=== PATIENT | female | born 1995 | race Caucasian/White ===

== ENCOUNTER 2018-05-29 20:00 | Emergency (ER) | payer OTHER ==
[2018-05-29 20:11] VITALS: RESP 16
[2018-05-29] MEDS ORDERED: Alum-Mag Hydrox-Simethicone Susp (30 mL) PO ONE (20:53)
[2018-05-29] MEDS ORDERED: Sodium Chloride 0.9% 1,000 ML IV STA (20:53)
--- NOTE | 2018-05-29 21:18 | ED PDOC ---
HPI: Abdomen Time Seen by Provider: 05/29/18 20:17 Chief Complaint (Nursing): Abdominal Pain History Per: Patient Additional Complaint(s): Pt. states yesterday she developed non-radiating epigastric pain after eating. 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 Pain came on after eating and has been waxing and waning since. She was seen at a clinic today for same complaint. Had blood work done which is still pending. She was prescribed Omeprazole which has not provided any relief. Denies N/V/D, fever, chest pain, SOB, previous abd surgeries. Last BM was yesterday and was normal. Last Menstral Period: 3 weeks ago Past Medical History Reviewed: Historical Data, Nursing Documentation, Vital Signs Vital Signs: Last Vital Signs Temp 97.8 F 05/29/18 20:09 Pulse 69 05/29/18 20:09 Resp 16 05/29/18 20:09 BP 106/70 05/29/18 20:09 Pulse Ox 100 05/29/18 20:09 - Medical History PMH: No Chronic Diseases - Surgical History Surgical History: No Surg Hx - Family History Family History: States: No Known Family Hx - Home Medications Home Medications: Ambulatory Orders Medication Instructions Recorded Famotidine [Pepcid] 1 - 2 tab PO DAILY PRN #10 tab 05/29/18 - Allergies Allergies/Adverse Reactions: Allergies Allergy/AdvReac Type Severity Reaction Status Date / Time No Known Allergies Allergy Verified 05/29/18 20:08 Review of Systems ROS Statement: Except As Marked, All Systems Reviewed And Found Negative Gastrointestinal: Positive for: Abdominal Pain Physical Exam - Physical Exam Appears: Positive for: Well, Non-toxic, No Acute Distress Skin: Positive for: Normal Color, Warm. Negative for: Rash Eye Exam: Positive for: Normal appearance. Negative for: Scleral icterus (b/l) Cardiovascular/Chest: Positive for: Regular Rate, Rhythm Respiratory: Positive for: Normal Breath Sounds Gastrointestinal/Abdominal: Positive for: Bowel Sounds, Soft, Tenderness (RUQ and epigastric tenderness), Other (negative Danielle's sign). Negative for: Organomegaly Back: Negative for: L CVA Tenderness, R CVA Tenderness Neurologic/Psych: Positive for: Alert, Oriented (x3) - Laboratory Results Result Diagrams: 05/29/18 21:10 05/29/18 21:10 - ECG O2 Sat by Pulse Oximetry: 100 - Progress ED Course And Treament: Labs, Abd US, pepcid 20mg IV, maalox 30ml PO, viscous lidocaine 15ml PO ordered. 2220 On re-evaluation, pt. reports good relief of abd pain. Pending US report. US: sludge; no cholecysitits Informed of all results. Low fat and low cholesterol diet encouraged. Advised to f/u with Dr. Mon for further evaluation but return to ED immediately if symptoms worsen. Disposition - Clinical Impression Clinical Impression: Gastritis, Gallbladder sludge - Patient ED Disposition Is Patient to be Admitted: No - Disposition Referrals: Johnathan Mon MD [Staff Provider] - Disposition: Routine/Home Disposition Time: 23:31 Condition: IMPROVED Additional Instructions: FOLLOW UP WITH DR. MON FOR FURTHER EVALUATION RETURN TO ED IMMEDIATELY IF SYMPTOMS WORSEN JOSHUA TATUM, thank you for letting us take care of you today. Your provider was Shonna Reza MD and you were treated for ABD PAIN. The emergency medical care you received today was directed at your acute symptoms. If you were prescribed any medication, please fill it and take as directed. It may take several days for your symptoms to resolve. Return to the Emergency Department if your symptoms worsen, do not improve, or if you have any other problems. Please contact your doctor or call one of the physicians/clinics you have been referred to that are listed on the Patient Visit Information form that is included in your discharge packet. Bring any paperwork you were given at [facility] with you along with any medications you are taking to your follow up visit. Our treatment cannot replace ongoing medical care by a primary care provider outside of the emergency department. Thank you for allowing the [facility] team to be part of your care today. If you had an X-Ray or CT scan: A Radiologist will review the ED reading if any change in treatment is needed we will contact you. If you had a blood, urine, or wound culture: It will take several days for the results, if any change in treatment is needed we will contact you. If you had an STI test: It will take 48 hours for the results. Please call after 1 week if you have not heard back. Prescriptions: Famotidine [Pepcid] 1 - 2 tab PO DAILY PRN #10 tab PRN Reason: abdominal pain Instructions: Gastritis (DC) Forms: [employer] (Slovenian)
[2018-05-29 21:19] LABS: BASO % 0.8 % (0.0-2.0); EOS # 0.1 K/uL (0.0-0.7); EOS % 2.5 % (0.0-4.0); HEMOGLOBIN 11.7 g/dL (12.0-16.0); LYMPH # 1.9 K/uL (1.0-4.3); LYMPH % 37.2 % (20.0-40.0); MEAN CORPUSCULAR HEMOGLOBIN 30.7 pg (27.0-31.0); MEAN CORPUSCULAR HGB CONC 33.1 g/dL (33.0-37.0); MEAN PLATELET VOLUME 10.6 fl (7.2-11.7); MONO # 0.4 K/uL (0.0-0.8); MONO % 7.3 % (0.0-10.0); NEUT # 2.7 K/uL (1.8-7.0); NEUT % 52.2 % (50.0-75.0); NRBC % 0.1 % (0.0-0.0); RBC 3.82 Mil/uL (3.80-5.20); RED CELL DISTRIBUTION WIDTH 14.2 % (11.5-14.5); WHITE BLOOD COUNT 5.1 K/uL (4.8-10.8)
[2018-05-29 21:24] LABS: SQUAMOUS EPITHIAL 4 /hpf (0-5); URINE BACTERIA RARE (<OCC); URINE BILIRUBIN NEGATIVE (NEGATIVE); URINE BLOOD NEGATIVE (NEGATIVE); URINE CLARITY SLIGHTY-CLOUDY (Clear); URINE COLOR STRAW (YELLOW); URINE GLUCOSE (UA) NEG (NEGATIVE); URINE LEUKOCYTE ESTERASE SMALL Leu/uL (Negative); URINE PROTEIN NEGATIVE (NEGATIVE); URINE UROBILINOGEN 0.2-1.0 mg/dL (0.2-1.0)
[2018-05-29 21:39] LABS: BLOOD UREA NITROGEN 11 mg/dl (7-17); GFR NON-AFRICAN AMERICAN > 60
[2018-05-29 21:40] LABS: ALBUMIN 4.3 g/dL (3.5-5.0); CALCIUM 9.3 mg/dL (8.4-10.2)
[2018-05-29 21:41] LABS: ALT/SGPT 17 U/L (9-52); AST/SGOT 21 U/L (14-36); LIPASE 153 U/L (23-300)
[2018-05-29 21:52] LABS: ALB/GLOB RATIO 1.2 (1.0-2.1)
[2018-05-30 01:48] VITALS: BP 110/70; PULSE 86; TEMP 98.2
[2018-05-30 03:34] VITALS: O2SAT 100
--- NOTE | 2018-05-30 11:12 | US ---
Date of service: 05/29/2018 HISTORY: RUQ and epigastric pain COMPARISON: None. TECHNIQUE: Sonographic evaluation of the right upper quadrant of the abdomen. FINDINGS: LIVER: Measures 14.2 cm in length. Patent portal vein. Portal venous flow: Hepatopetal. Unremarkable echogenicity of the liver parenchyma. No mass. No intrahepatic bile duct dilatation. GALLBLADDER: Sludge identified. Normal gallbladder wall thickness. No gallstones. COMMON BILE DUCT: Measures 2.2 mm. No stones. No dilatation. PANCREAS: Unremarkable as visualized. No mass. No ductal dilatation. RIGHT KIDNEY: Measures cm in length. Normal echogenicity. No calculus, mass, or hydronephrosis. AORTA: No aneurysmal dilatation. IVC: Unremarkable. OTHER FINDINGS: None . IMPRESSION: No acute findings related to/ accounting for the clinical presentation. Additional benign and/or incidental findings described above. Concordant findings (preliminary report) provided by [facility].
== END 2018-05-29 23:50 | disposition home or self-care (01) ==
LOC: H.ER 20:00
DX: K29.70 Gastritis, unspecified, without bleeding (principal)
CPT/HCPCS: 76705; 80053; 81003; 81025; 83690; 85025; 87086; 87181; 96361; 96374; 99283; J7030

== ENCOUNTER 2018-05-30 21:40 | Observation (INO) | payer OTHER ==
[2018-05-30] MEDS ORDERED: Sodium Chloride 0.9% 1,000 ML IV STA (22:10)
[2018-05-30] MEDS ORDERED: Alum-Mag Hydrox-Simethicone Susp (30 mL) PO ONE (22:10)
[2018-05-30] MEDS ORDERED: Alum-Mag Hydrox-Simethicone Susp (30 mL) ONE (22:40)
[2018-05-30 22:52] LABS: SQUAMOUS EPITHIAL 1 /hpf (0-5); URINE BILIRUBIN NEGATIVE (NEGATIVE); URINE BLOOD SMALL (NEGATIVE); URINE CLARITY CLEAR (Clear); URINE COLOR COLORLESS (YELLOW); URINE GLUCOSE (UA) NEG (NEGATIVE); URINE LEUKOCYTE ESTERASE NEG Leu/uL (Negative); URINE PROTEIN NEGATIVE (NEGATIVE); URINE UROBILINOGEN 0.2-1.0 mg/dL (0.2-1.0)
--- NOTE | 2018-05-30 22:54 | ED PDOC ---
HPI: Abdomen Time Seen by Provider: 05/30/18 22:04 Chief Complaint (Nursing): Abdominal Pain History Per: Patient Additional Complaint(s): Pt. states for the past 3 days she's had epigastric pain x 3 hours. Pt. was seen in this ED yesterday and for same complaint by this provider. Pt. was dc'd pain free. US showed biliary sludge but no stones or cholecystitis. 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 Now reports feeling nauseous but no vomiting. Denies fever, chest pain, melena, hematochezia, BRBPR, rectal bleeding. Past Medical History Reviewed: Historical Data, Nursing Documentation, Vital Signs Vital Signs: Last Vital Signs Temp 98.2 F 05/30/18 21:48 Pulse 100 H 05/30/18 21:48 Resp 16 05/30/18 21:48 BP 121/83 05/30/18 21:48 Pulse Ox 99 05/30/18 21:48 - Surgical History Surgical History: No Surg Hx - Family History Family History: States: No Known Family Hx - Home Medications Home Medications: Ambulatory Orders Medication Instructions Recorded RX: Famotidine [Pepcid] 1 - 2 tab PO DAILY PRN #10 tab 05/29/18 RX: Amoxicillin 1,000 mg PO Q12 05/31/18 RX: Clarithromycin [Biaxin Filmtab] 500 mg PO Q12 05/31/18 RX: Omeprazole 20 mg PO DAILY 05/31/18 - Allergies Allergies/Adverse Reactions: Allergies Allergy/AdvReac Type Severity Reaction Status Date / Time No Known Allergies Allergy Verified 05/30/18 21:47 Review of Systems ROS Statement: Except As Marked, All Systems Reviewed And Found Negative Gastrointestinal: Positive for: Nausea, Abdominal Pain Physical Exam - Physical Exam Appears: Positive for: Well, Non-toxic, No Acute Distress Skin: Positive for: Normal Color, Warm. Negative for: Rash Eye Exam: Positive for: Normal appearance. Negative for: Scleral icterus Cardiovascular/Chest: Positive for: Regular Rate, Rhythm Respiratory: Positive for: Normal Breath Sounds Gastrointestinal/Abdominal: Positive for: Soft, Tenderness (RUQ and epigastric tenderness), Other (Negative lezama's sign). Negative for: Guarding Back: Negative for: L CVA Tenderness, R CVA Tenderness Neurologic/Psych: Positive for: Alert, Oriented (x3) - Laboratory Results Result Diagrams: 05/30/18 22:53 05/31/18 02:10 - ECG ECG: Positive for: Interpreted By Me ECG Rhythm: Positive for: Sinus Rhythm. Negative for: ST/T Changes Rate: 86 O2 Sat by Pulse Oximetry: 99 (RA) Pulse Ox Interpretation: Normal - Progress ED Course And Treament: Labs, CT abd/pelvis w/ PO and IV contrast, EKG, pepcid 20mg IV, zofran 4mg IV, maalox 30ml PO, viscous lidocaine 15ml PO, IV NS bolus ordered. Pt. kept NPO. Last PO intake at 1400 today. 0000 Reports pain initially resolved but has since returned. Protonix IV ordered. Pending CT. 02:11 Patient reports pain completely resolved. However, due to CT report, RUQ US ordered. 0430 Case d/w Dr. Camarillo, surgery, who requests pt. to be admitted under Dr. Moya and to be given Zosyn IV. Medical Decision Making Medical Decision Making: CT COMMENTS: Significant food residue in the distended stomach. Fluid filled small and large bowels. Mild diffuse thickening of the bladder. Mild amount of free fluid is noted in the pelvis. The liver is of uniform attenuation without mass or defect. There is no intra or extrahepatic biliary ductal dilatation. The spleen is normal. The gallbladder is within normal limits. The pancreas is of normal contour and attenuation characteristics. There is no evidence of adrenal mass. Both kidneys demonstrate prompt and equal nephrograms. The kidneys are normal in size, shape and configuration. There is no evidence of renal or ureteral mass. No renal or ureteral calculi are identified. There is no hydroureter or hydronephrosis. No evidence for appendicitis. There is no bowel wall thickening. No evidence for small or large bowel obstruction. There is no evidence of abdominal ascites or lymphadenopathy. There is no evidence of intrinsic or extrinsic bladder mass. There is no pelvic ascites or lymphadenopathy. Images of the lung bases show no evidence of pleural or parenchymal mass. There are no pleural effusions. The bony structures are free of lytic or blastic lesions. IMPRESSION: Mild amount of free pelvic fluid. Fluid-filled small and large bowels. Ileus versus developing enterocolitis. Diffuse thickening of the distended gallbladder, this is suspicious for mild developing acute inflammatory pathology. Correlation with right upper quadrant tenderness is suggested. 03:36 Gallbladder hepatic US Findings: The liver is normal in size measuring 12.5 cm. Sludge is noted in the gallbladder. Minimal diffuse thickening of the gallbladder. Nondilated common bile duct measuring 3.9 mm. Unremarkable pancreas. Unremarkable IVC. Unremarkable aorta. Nonaneurysmal aorta measuring 1.3 cm. Unremarkable right kidney measuring 10 x 3.2 x 4.1 cm. Impression: Gallbladder sludge. Suspected developing acute cholecystitis. Disposition - Clinical Impression Clinical Impression: Abdominal pain in female, Biliary sludge - Patient ED Disposition Is Patient to be Admitted: Yes - Disposition Disposition Time: 04:30 Condition: FAIR
[2018-05-30 22:57] LABS: BASO % 0.8 % (0.0-2.0); EOS # 0.1 K/uL (0.0-0.7); EOS % 2.5 % (0.0-4.0); HEMOGLOBIN 13.9 g/dL (12.0-16.0); LYMPH # 1.8 K/uL (1.0-4.3); LYMPH % 35.3 % (20.0-40.0); MEAN CELL VOLUME 91.2 fl (81.0-99.0); MEAN CORPUSCULAR HEMOGLOBIN 30.5 pg (27.0-31.0); MEAN CORPUSCULAR HGB CONC 33.4 g/dL (33.0-37.0); MEAN PLATELET VOLUME 10.5 fl (7.2-11.7); MONO # 0.3 K/uL (0.0-0.8); MONO % 6.5 % (0.0-10.0); NEUT # 2.8 K/uL (1.8-7.0); NEUT % 54.9 % (50.0-75.0); RBC 4.56 Mil/uL (3.80-5.20)
[2018-05-31] MEDS ORDERED: Iohexol 300 100 ML IJ ONE (00:37)
[2018-05-31] MEDS ORDERED: Sodium Chloride 0.9% 50 ML IV ONE (00:37)
[2018-05-31 02:31] LABS: INR 1.2; PROTHROMBIN TIME 13.2 Seconds (9.8-13.1)
[2018-05-31 02:32] LABS: ALB/GLOB RATIO 1.1 (1.0-2.1); ALT/SGPT 19 U/L (9-52); AST/SGOT 18 U/L (14-36); BLOOD UREA NITROGEN 10 mg/dl (7-17); CALCIUM 8.6 mg/dL (8.4-10.2); GFR NON-AFRICAN AMERICAN > 60
[2018-05-31 02:33] LABS: PARTIAL THROMBOPLASTIN TIME 36.6 Seconds (25.6-37.1)
[2018-05-31] MEDS ORDERED: Piperacillin/Tazobact 3.375 GM in Sodium Chloride 0.9% 100 ML IVPB STA (04:29)
[2018-05-31] MEDS ORDERED: Sodium Chloride 0.9% 1,000 ML IV STA (04:48)
[2018-05-31] MEDS ORDERED: Piperacillin/Tazobact 3.375 gm Inj IVPB ONE (05:24)
[2018-05-31] MEDS ORDERED: Morphine 4 MG/ML VIAL IVP PRN (05:50)
[2018-05-31] MEDS ORDERED: Lactated Ringer's 1,000 ML IV SCH (06:00)
[2018-05-31 08:34] VITALS: BP 103/64; RESP 16
--- NOTE | 2018-05-31 09:03 | CT ---
Date of service: 05/31/2018 PROCEDURE: CT Abdomen and Pelvis with contrast HISTORY: epigastric abd pain COMPARISON: Limited abdomen ultrasound 05/29/2018. TECHNIQUE: Following the intravenous administration of iodinated contrast material, a CT examination of the abdomen and pelvis was performed from the domes of the diaphragms to the symphysis pubis with reformatted datasets provided in axial, sagittal and coronal planes. Oral contrast was not administered as per referring physician request. Contrast dose: Omnipaque 300, 75 cc Radiation dose: Total exam DLP = 189.45 mGy-cm. This CT exam was performed using one or more of the following dose reduction techniques: Automated exposure control, adjustment of the mA and/or kV according to patient size, and/or use of iterative reconstruction technique. FINDINGS: LOWER THORAX: Unremarkable. LIVER: Unremarkable. No gross lesion or ductal dilatation. GALLBLADDER AND BILE DUCTS: Gallbladder is distended but without significant mural thickening and there is no pericholecystic fluid collection evident. Biliary tree appears normal caliber overall. No radiodense cholelithiasis or choledocholithiasis appreciable. PANCREAS: Unremarkable. No gross lesion or ductal dilatation. SPLEEN: Unremarkable. ADRENALS: Unremarkable. No mass. KIDNEYS AND URETERS: Unremarkable. No hydronephrosis. No solid mass. VASCULATURE: Unremarkable. No aortic aneurysm. No aortic atherosclerotic calcification or mural plaque present. BOWEL: Evaluation of the gastrointestinal tract is limited due to the lack of oral contrast administration. No bowel obstruction or free intra peritoneal gas collection is identified. [id number] amount of retained fecal material seen at the right greater than left hemicolon. Limited mural thickening of mid to distal sigmoid colon is difficult to completely exclude with rectum collapsed and poorly evaluated. Limited pelvic fluid is identified as well. Consider potential limited segmental colitis here though this is not definite. APPENDIX: Normal appendix. PERITONEUM: Unremarkable. No free fluid. No free air. LYMPH NODES: Unremarkable. No enlarged lymph nodes. BLADDER: Unremarkable. REPRODUCTIVE: Unremarkable. BONES: No acute fracture. OTHER FINDINGS: None. IMPRESSION: 1. Potential segmental colitis affecting mid to distal sigmoid colon with the rectum collapsed and poorly evaluated. Limited pelvic ascites is appreciated. No free intra peritoneal gas collection. No definite abscess. Clinically correlate further nevertheless. 2. The gallbladder is distended and otherwise appears unremarkable. No cholelithiasis or choledocholithiasis. No dilatation of the biliary tree. Follow-up ultrasonography may be useful given epigastric pain signature though no suspicious gallbladder findings were previously demonstrated sonographically. Preliminary report provided by Garry, 05/31/2018 1:30 a.m..
--- NOTE | 2018-05-31 09:35 | CARD ---
APPROVED REPORT Date of service: 05/30/2018 EKG Measurement Heart [id number] <Conclusion> Normal sinus rhythm Rightward axis Borderline ECG
[2018-05-31] MEDS ORDERED: Bupivacaine 0.25%-Epinephrine 1:200,000 (30 ml) Inj ONE (09:57)
--- NOTE | 2018-05-31 10:06 | CP.PCM.CON ---
History of Present Illness - History of Present Illness History of Present Illness: 23 yo female admitted after second visit to ER for epigastric abdominal pain. Each episode follwed lunch. On the first day had gone first to urgent care office and then to the ER. Had been given at urgent care omeprazole, amoxicillin, and clarithromycin . Was sent home pain free form the ER after antacids. Was admitted yesterday after pain returned following steak lunch. Pain both times epigastric in location and does not radiate to the back.No N andV or diarrhea. No recent alcohol use. No GI issues prior to the past few days. Review of Systems - Constitutional Constitutional: absent: Chills - EENT Ears: absent: Ear Pain Nose/Mouth/Throat: absent: Epistaxis - Respiratory Respiratory: absent: Cough - Gastrointestinal Gastrointestinal: As Per HPI Past Patient History - Past Medical History & Family History Past Medical History?: Yes - Past Social History Smoking Status: Never Smoked - CARDIAC Hx Cardiac Disorders: No - PULMONARY Hx Respiratory Disorders: No - NEUROLOGICAL Hx Neurological Disorder: No - HEENT Hx HEENT Problems: No Other/Comment: wears glasses for nearsightedness - RENAL Hx Chronic Kidney Disease: No - ENDOCRINE/METABOLIC Hx Endocrine Disorders: No - HEMATOLOGICAL/ONCOLOGICAL Hx Blood Disorders: No Hx AIDS: No Hx Human Immunodeficiency Virus (HIV): No - INTEGUMENTARY Hx Dermatological Problems: No - MUSCULOSKELETAL/RHEUMATOLOGICAL Hx Musculoskeletal Disorders: No Hx Falls: No - GASTROINTESTINAL Hx Gastrointestinal Disorders: Yes Other/Comment: was in ED 05/29 for abdominal pain ,was DX with sludge in gallbladder after U/S of GB done - GENITOURINARY/GYNECOLOGICAL Hx Genitourinary Disorders: No - PSYCHIATRIC Hx Psychophysiologic Disorder: No Hx Substance Use: No - SURGICAL HISTORY Hx Surgeries: No - ANESTHESIA Hx Anesthesia: No Has any member of the family had a problem w/ anesthesia?: No Meds Allergies/Adverse Reactions: Allergies Allergy/AdvReac Type Severity Reaction Status Date / Time No Known Allergies Allergy Verified 05/30/18 21:47 - Medications Medications: Current Medications Lactated Ringer's (Lactated Ringer's) 1,000 mls @ 80 mls/hr IV .[id number] ON LICENSE OF [facility] Last Admin: 05/31/18 06:42 Dose: 80 mls/hr Morphine Sulfate (Morphine) 2 mg IVP Q4 PRN PRN Reason: Pain, moderate (4-7) Pantoprazole Sodium (Protonix Inj) 40 mg IVP DAILY GEM Physical Exam - Constitutional Appears: No Acute Distress - Eye Exam Eye Exam: Normal appearance - ENT Exam ENT Exam: Normal Exam - Neck Exam Neck exam: Positive for: Normal Inspection - Respiratory Exam Respiratory Exam: NORMAL BREATHING PATTERN - Cardiovascular Exam Cardiovascular Exam: REGULAR RHYTHM, +S1, +S2 - GI/Abdominal Exam GI & Abdominal Exam: Normal Bowel Sounds, Soft. absent: Mass, Organomegaly, Tenderness Results - Vital Signs Recent Vital Signs: Last Vital Signs Temp 99.0 F 05/31/18 08:33 Pulse 86 05/31/18 08:33 Resp 16 05/31/18 08:33 BP 103/64 05/31/18 08:33 Pulse Ox 99 05/31/18 08:33 - Labs Result Diagrams: 05/30/18 22:53 05/31/18 02:10 Labs: Laboratory Results - last 24 hr 05/30/18 05/30/18 05/31/18 22:40 22:53 02:10 WBC 5.0 RBC 4.56 Hgb 13.9 D Hct 41.6 MCV 91.2 MCH 30.5 MCHC 33.4 RDW 14.0 Plt Count 219 MPV 10.5 Neut % (Auto) 54.9 Lymph % (Auto) 35.3 [place] % (Auto) 6.5 Eos % (Auto) 2.5 Baso % (Auto) 0.8 Neut # (Auto) 2.8 Lymph # (Auto) 1.8 [place] # (Auto) 0.3 Eos # (Auto) 0.1 Baso # (Auto) 0.0 PT INR APTT Sodium 138 Potassium 4.0 Chloride 111 H Carbon Dioxide 21 L Anion Gap 10 BUN 10 Creatinine 0.6 L Est GFR ( Amer) > 60 Est GFR (Non-Af Amer) > 60 Random Glucose 83 Calcium 8.6 Total Bilirubin 0.4 AST 18 ALT 19 Alkaline Phosphatase 72 Total Protein 7.5 Albumin 4.0 Globulin 3.5 Albumin/Globulin Ratio 1.1 Lipase Urine Color Colorless Urine Clarity Clear Urine pH 8.0 Ur Specific [place] < 1.005 Urine Protein Negative Urine Glucose (UA) Neg Urine Ketones Negative Urine Blood Small Urine Nitrate Negative Urine Bilirubin Negative Urine Urobilinogen 0.2-1.0 Ur Leukocyte Esterase Neg Urine RBC (Auto) 1 Urine Microscopic WBC < 1 Ur Squamous Epith Cells 1 Blood Type Antibody Screen BBK History Checked 05/31/18 05/31/18 05/31/18 02:10 02:10 08:27 WBC RBC Hgb Hct MCV MCH MCHC RDW Plt Count MPV Neut % (Auto) Lymph % (Auto) [place] % (Auto) Eos % (Auto) Baso % (Auto) Neut # (Auto) Lymph # (Auto) [place] # (Auto) Eos # (Auto) Baso # (Auto) PT 13.2 H INR 1.2 APTT 36.6 Sodium Potassium Chloride Carbon Dioxide Anion Gap BUN Creatinine Est GFR ( Amer) Est GFR (Non-Af Amer) Random Glucose Calcium Total Bilirubin AST ALT Alkaline Phosphatase Total Protein Albumin Globulin Albumin/Globulin Ratio Lipase 119 Urine Color Urine Clarity Urine pH Ur Specific [place] Urine Protein Urine Glucose (UA) Urine Ketones Urine Blood Urine Nitrate Urine Bilirubin Urine Urobilinogen Ur Leukocyte Esterase Urine RBC (Auto) Urine Microscopic WBC Ur Squamous Epith Cells Blood Type B POSITIVE Antibody Screen Negative BBK History Checked No verified bt - Imaging and Cardiology CT scan - abdomen Status: Image reviewed by me, Report reviewed by me US - abdomen Status: Report reviewed by me Assessment & Plan (1) Epigastric abdominal pain Assessment and Plan: Two episisodes of anterior epigastric pain each time responding to antisecretory therapy. Possible biliary sludge on sono but pain description atypical for billiary pain and WBC/LFTs are normal. Symptoms more consistent with gastritis than biliary colic. Possible ileus on CT though now abdominal exam is benign. May discharge home on omeprazole 20 mg po QD. May stop antibiotics and for now would hold antibiotics given to her by urgicenter apparently to treat H. pylori. Avoid red meat and fried foods and small meals for the next 4 days. Probiotics intake in foods or in supplement form Status: Acute
--- NOTE | 2018-05-31 10:10 | CP.PCM.HP ---
History of Present Illness - History of Present Illness History of Present Illness: Surgery H&P for Dr. Moya Pt is a 23F with who presented to the ED with persistent epigastric pain after eating. Per patient, she just recently had an outpatient breath test that was indicative of an H. pylori infection and she was started on omeprazole and antibiotics. Symptoms started a few days ago and she came to the ER on 05/29, had an US showed cholecystitis, but was unwise unremarkable, and she was discharged home with antacids and instructions to follow up with GI. Patient symptoms did not resolve, with persistent epigastric pain after eating despite medication, so she returned to the ER. Repeat US showed stones, gallbladder distention, and mild wall thickening and she was admitted to the surgical service. Patient denies nausea, vomiting, diarrhea, fevers, chills, back pain, dysuria, hematuria, chest pain, or SOB PMH: H. pylori--active PSH: none ALL: NKDA Social: denies tobacco, ETOH, or drug use Present on Admission - Present on Admission Any Indicators Present on Admission: No Review of Systems - Review of Systems All systems: reviewed and no additional remarkable complaints except (as per HPI) Past Patient History - Past Medical History & Family History Past Medical History?: Yes Past Family History: Reviewed and not pertinent - Past Social History Smoking Status: Never Smoked Alcohol: None Drugs: Denies Home Situation {Lives}: With Family - CARDIAC Hx Cardiac Disorders: No - PULMONARY Hx Respiratory Disorders: No - NEUROLOGICAL Hx Neurological Disorder: No - HEENT Hx HEENT Problems: No Other/Comment: wears glasses for nearsightedness - RENAL Hx Chronic Kidney Disease: No - ENDOCRINE/METABOLIC Hx Endocrine Disorders: No - HEMATOLOGICAL/ONCOLOGICAL Hx Blood Disorders: No Hx AIDS: No Hx Human Immunodeficiency Virus (HIV): No - INTEGUMENTARY Hx Dermatological Problems: No - MUSCULOSKELETAL/RHEUMATOLOGICAL Hx Musculoskeletal Disorders: No Hx Falls: No - GASTROINTESTINAL Hx Gastrointestinal Disorders: Yes Other/Comment: was in ED 05/29 for abdominal pain ,was DX with sludge in gallbladder after U/S of GB done - GENITOURINARY/GYNECOLOGICAL Hx Genitourinary Disorders: No - PSYCHIATRIC Hx Psychophysiologic Disorder: No Hx Substance Use: No - SURGICAL HISTORY Hx Surgeries: No - ANESTHESIA Hx Anesthesia: No Has any member of the family had a problem w/ anesthesia?: No Meds Allergies/Adverse Reactions: Allergies Allergy/AdvReac Type Severity Reaction Status Date / Time No Known Allergies Allergy Verified 05/30/18 21:47 Physical Exam - Constitutional Appears: Well, Non-toxic, No Acute Distress - Head Exam Head Exam: ATRAUMATIC, NORMOCEPHALIC - Eye Exam Eye Exam: Normal appearance. absent: Conjunctival injection, Scleral icterus - ENT Exam ENT Exam: Mucous Membranes Moist, Normal Oropharynx - Respiratory Exam Respiratory Exam: NORMAL BREATHING PATTERN. absent: Accessory Muscle Use, Respiratory Distress - Cardiovascular Exam Cardiovascular Exam: RRR - GI/Abdominal Exam GI & Abdominal Exam: Soft. absent: Distended, Tenderness - Neurological Exam Neurological exam: Alert, Oriented x3 - Psychiatric Exam Psychiatric exam: Normal Affect, Normal Mood - Skin Skin Exam: Dry, Normal Color, Warm Results - Vital Signs Recent Vital Signs: Last Vital Signs Temp 99.0 F 05/31/18 08:33 Pulse 86 05/31/18 08:33 Resp 16 05/31/18 08:33 BP 103/64 05/31/18 08:33 Pulse Ox 99 05/31/18 08:33 - Labs Result Diagrams: 05/30/18 22:53 05/31/18 02:10 Labs: Laboratory Results - last 24 hr 05/30/18 05/30/18 05/31/18 22:40 22:53 02:10 WBC 5.0 RBC 4.56 Hgb 13.9 D Hct 41.6 MCV 91.2 MCH 30.5 MCHC 33.4 RDW 14.0 Plt Count 219 MPV 10.5 Neut % (Auto) 54.9 Lymph % (Auto) 35.3 Swift % (Auto) 6.5 Eos % (Auto) 2.5 Baso % (Auto) 0.8 Neut # (Auto) 2.8 Lymph # (Auto) 1.8 Swift # (Auto) 0.3 Eos # (Auto) 0.1 Baso # (Auto) 0.0 PT INR APTT Sodium 138 Potassium 4.0 Chloride 111 H Carbon Dioxide 21 L Anion Gap 10 BUN 10 Creatinine 0.6 L Est GFR ( Amer) > 60 Est GFR (Non-Af Amer) > 60 Random Glucose 83 Calcium 8.6 Total Bilirubin 0.4 AST 18 ALT 19 Alkaline Phosphatase 72 Total Protein 7.5 Albumin 4.0 Globulin 3.5 Albumin/Globulin Ratio 1.1 Lipase Urine Color Colorless Urine Clarity Clear Urine pH 8.0 Ur Specific [place] < 1.005 Urine Protein Negative Urine Glucose (UA) Neg Urine Ketones Negative Urine Blood Small Urine Nitrate Negative Urine Bilirubin Negative Urine Urobilinogen 0.2-1.0 Ur Leukocyte Esterase Neg Urine RBC (Auto) 1 Urine Microscopic WBC < 1 Ur Squamous Epith Cells 1 Blood Type Antibody Screen BBK History Checked 05/31/18 05/31/18 05/31/18 02:10 02:10 08:27 WBC RBC Hgb Hct MCV MCH MCHC RDW Plt Count MPV Neut % (Auto) Lymph % (Auto) Swift % (Auto) Eos % (Auto) Baso % (Auto) Neut # (Auto) Lymph # (Auto) Swift # (Auto) Eos # (Auto) Baso # (Auto) PT 13.2 H INR 1.2 APTT 36.6 Sodium Potassium Chloride Carbon Dioxide Anion Gap BUN Creatinine Est GFR ( Amer) Est GFR (Non-Af Amer) Random Glucose Calcium Total Bilirubin AST ALT Alkaline Phosphatase Total Protein Albumin Globulin Albumin/Globulin Ratio Lipase 119 Urine Color Urine Clarity Urine pH Ur Specific [place] Urine Protein Urine Glucose (UA) Urine Ketones Urine Blood Urine Nitrate Urine Bilirubin Urine Urobilinogen Ur Leukocyte Esterase Urine RBC (Auto) Urine Microscopic WBC Ur Squamous Epith Cells Blood Type B POSITIVE Antibody Screen Negative BBK History Checked No verified bt - Imaging and Cardiology US - abdomen Status: Image reviewed by me, Report reviewed by me Assessment & Plan - Assessment and Plan (Free Text) Assessment: 23F with postprandial epigastric pain suspicious for symptomatic cholelithiasis Plan: OR today for laparoscopic cholecystectomy NPO IV protonix PRN pain and nausea medication SCD, incentive spirometer Encourage ambulation Discussed with Dr. Griffin Catherine, PGY2 Decision To Admit - Pt Status Changed To: Hospital Disposition Of: Inpatient - Admit Certification Admit to Inpatient:: After my assessment, the patient will require hospitalization for at least two midnights. This is because of the severity of symptoms shown, intensity of services needed, and/or the medical risk in this patient being treated as an outpatient. - . Bed Request Type: Med/Surg Admitting Physician: Chele Moya
[2018-05-31] MEDS ORDERED: Midazolam 2 MG/2 ML VIAL ONE (10:13)
[2018-05-31] MEDS ORDERED: Succinylcholine Chloride 20 mg/ml Syr (5 ml) IV ONE (10:13)
[2018-05-31] MEDS ORDERED: Rocuronium 10 mg/ml (5 ml) ONE (10:13)
[2018-05-31] MEDS ORDERED: Lidocaine 4% (Laryng-O-Jet) Kit MM ONE (10:13)
[2018-05-31] MEDS ORDERED: Propofol 10 mg/ml Inj (20 ML) ONE (10:13)
--- NOTE | 2018-05-31 10:55 | US ---
Date of service: 05/31/2018 HISTORY: RUQ pain; biliary sludge COMPARISON: None. TECHNIQUE: Sonographic evaluation of the right upper quadrant of the abdomen. FINDINGS: LIVER: Measures 12.5 cm in length. Normal echogenicity of the liver parenchyma. No mass. No intrahepatic bile duct dilatation. GALLBLADDER: Sludge is identified layering in a moderately distended gallbladder with the wall upper limits normal thickness at 2.4 mm. No sonographic Danielle sign reported. COMMON BILE DUCT: Measures 3.9 mm. No stones. No dilatation. PANCREAS: Unremarkable as visualized. No mass. No ductal dilatation. RIGHT KIDNEY: Measures 10.0 cm in length. Normal echogenicity. No calculus, mass, or hydronephrosis. AORTA: No aneurysmal dilatation. IVC: Unremarkable. OTHER FINDINGS: None . IMPRESSION: Sludge identified layering in a moderate distended gallbladder without defined cholelithiasis or significant biliary tree dilatation appreciable. No pericholecystic fluid collection. The gallbladder wall is upper limits normal thickness. Limited, borderline pattern of cholecystitis however clinical correlation is recommended. The remainder of the limited abdomen ultrasound is unremarkable otherwise. Preliminary report provided by Garry, 05/31/2018 3:36 a.m..
[2018-05-31 13:41] VITALS: TEMP 98.3
--- NOTE | 2018-05-31 15:40 | CP.PCM.DIS ---
Provider - Provider Date of Admission: 05/31/18 04:25 Attending physician: Chele Moya MD Consults: 05/31/18 04:36 Surgery [General Surgery Consult] Stat Comment: Consulting Provider: Chele Moya Consulting Physician: Chele Moya Reason for Consult: RUQ pain, cholecystitis 05/31/18 09:42 Gastroenterology Consult Routine Comment: Consulting Provider: Johnathan Rawls Consulting Physician: Johnathan Rawls Reason for Consult: epigastric pain r/o cholecystitis Time Spent in preparation of Discharge (in minutes): 35 Hospital Course - Lab Results Lab Results: Most Recent Lab Values WBC 5.0 K/uL (4.8-10.8) 05/30/18 22:53 RBC 4.56 Mil/uL (3.80-5.20) 05/30/18 22:53 Hgb 13.9 g/dL (12.0-16.0) D 05/30/18 22:53 Hct 41.6 % (34.0-47.0) 05/30/18 22:53 MCV 91.2 fl (81.0-99.0) 05/30/18 22:53 MCH 30.5 pg (27.0-31.0) 05/30/18 22:53 MCHC 33.4 g/dL (33.0-37.0) 05/30/18 22:53 RDW 14.0 % (11.5-14.5) 05/30/18 22:53 Plt Count 219 K/uL (130-400) 05/30/18 22:53 MPV 10.5 fl (7.2-11.7) 05/30/18 22:53 Neut % (Auto) 54.9 % (50.0-75.0) 05/30/18 22:53 Lymph % (Auto) 35.3 % (20.0-40.0) 05/30/18 22:53 Moore % (Auto) 6.5 % (0.0-10.0) 05/30/18 22:53 Eos % (Auto) 2.5 % (0.0-4.0) 05/30/18 22:53 Baso % (Auto) 0.8 % (0.0-2.0) 05/30/18 22:53 Neut # (Auto) 2.8 K/uL (1.8-7.0) 05/30/18 22:53 Lymph # (Auto) 1.8 K/uL (1.0-4.3) 05/30/18 22:53 Moore # (Auto) 0.3 K/uL (0.0-0.8) 05/30/18 22:53 Eos # (Auto) 0.1 K/uL (0.0-0.7) 05/30/18 22:53 Baso # (Auto) 0.0 K/uL (0.0-0.2) 05/30/18 22:53 PT 13.2 Seconds (9.8-13.1) H 05/31/18 02:10 INR 1.2 05/31/18 02:10 APTT 36.6 Seconds (25.6-37.1) 05/31/18 02:10 Sodium 138 mmol/l (132-148) 05/31/18 02:10 Potassium 4.0 MMOL/L (3.6-5.0) 05/31/18 02:10 Chloride 111 mmol/L (98-107) H 05/31/18 02:10 Carbon Dioxide 21 mmol/L (22-30) L 05/31/18 02:10 Anion Gap 10 (10-20) 05/31/18 02:10 BUN 10 mg/dl (7-17) 05/31/18 02:10 Creatinine 0.6 mg/dl (0.7-1.2) L 05/31/18 02:10 Est GFR ( Amer) > 60 05/31/18 02:10 Est GFR (Non-Af Amer) > 60 05/31/18 02:10 Random Glucose 83 mg/dL (65-105) 05/31/18 02:10 Calcium 8.6 mg/dL (8.4-10.2) 05/31/18 02:10 Total Bilirubin 0.4 mg/dl (0.2-1.3) 05/31/18 02:10 AST 18 U/L (14-36) 05/31/18 02:10 ALT 19 U/L (9-52) 05/31/18 02:10 Alkaline Phosphatase 72 U/L (38-126) 05/31/18 02:10 Total Protein 7.5 G/DL (6.3-8.2) 05/31/18 02:10 Albumin 4.0 g/dL (3.5-5.0) 05/31/18 02:10 Globulin 3.5 gm/dL (2.2-3.9) 05/31/18 02:10 Albumin/Globulin Ratio 1.1 (1.0-2.1) 05/31/18 02:10 Lipase 119 U/L (23-300) 05/31/18 08:27 Urine Color Colorless (YELLOW) 05/30/18 22:40 Urine Clarity Clear (Clear) 05/30/18 22:40 Urine pH 8.0 (5.0-8.0) 05/30/18 22:40 Ur Specific [place] < 1.005 (1.003-1.030) 05/30/18 22:40 Urine Protein Negative mg/dL (NEGATIVE) 05/30/18 22:40 Urine Glucose (UA) Neg mg/dL (NEGATIVE) 05/30/18 22:40 Urine Ketones Negative mg/dL (NEGATIVE) 05/30/18 22:40 Urine Blood Small (NEGATIVE) 05/30/18 22:40 Urine Nitrate Negative (NEGATIVE) 05/30/18 22:40 Urine Bilirubin Negative (NEGATIVE) 05/30/18 22:40 Urine Urobilinogen 0.2-1.0 mg/dL (0.2-1.0) 05/30/18 22:40 Ur Leukocyte Esterase Neg Viri/uL (Negative) 05/30/18 22:40 Urine RBC (Auto) 1 /hpf (0-3) 05/30/18 22:40 Urine Microscopic WBC < 1 /hpf (0-5) 05/30/18 22:40 Ur Squamous Epith Cells 1 /hpf (0-5) 05/30/18 22:40 Blood Type B POSITIVE 05/31/18 02:10 Blood Type Confirm B POSITIVE 05/31/18 00:00 Antibody Screen Negative 05/31/18 02:10 BBK History Checked No verified bt 05/31/18 02:10 - Hospital Course Hospital Course: Pt is a 23F with who presented to the ED with persistent epigastric pain after eating. Per patient, she just recently had an outpatient breath test that was indicative of an H. pylori infection and she was started on omeprazole and antibiotics. Patient symptoms did not resolve, with persistent epigastric pain after eating despite medication. Abdominal US showed stones, gallbladder distention, and mild wall thickening and she was admitted to the surgical service. GI was consulted and recommendations for gastritis were noted. Patient was offered surgery for symptomatic cholelithiasis but patient refused, stating she wanted to see if treating the gastritis improved her pain, acknowledging that symptoms may return and may be worse in the future. Patient tolerated low fat diet with no symptoms, exam was benign, and she was ambulating. Patient was advised to maintain a low-fat diet, follow up with her GI doctor or with Dr. Rawls and to continue prescribed treatment for H. pylori and to follow up with Dr. Moya in his office if she had any further symptoms or wanted to pursue a cholecystectomy. For full hospital course, see chart Discharge Exam - Head Exam Head Exam: ATRAUMATIC, NORMOCEPHALIC - Eye Exam Eye Exam: Normal appearance. absent: Conjunctival injection, Scleral icterus - ENT Exam ENT Exam: Mucous Membranes Moist, Normal Oropharynx - Respiratory Exam Respiratory Exam: NORMAL BREATHING PATTERN, UNREMARKABLE. absent: Accessory Mus maira Use - Cardiovascular Exam Cardiovascular Exam: RRR - GI/Abdominal Exam GI & Abdominal Exam: Soft. absent: Distended, Rebound, Tenderness - Extremities Exam Extremities exam: normal inspection, pedal pulses present - Neurological Exam Neurological exam: Alert, Oriented x3 - Psychiatric Exam Psychiatric exam: Normal Affect, Normal Mood - Skin Skin Exam: Dry, Normal Color, Warm Discharge Plan - Follow Up Plan Condition: GOOD Disposition: HOME/ ROUTINE Patient education suggested?: Yes Instructions: Low Cholesterol, Saturated Fat, and Trans Fat Diet , H. pylori Infection, Gallstones (DC) Additional Instructions: maintain low fat diet as much as possible as instructed by Dr Moya. Return to ER if symptoms return. May follow up with Dr Moya (surgeon) [phone] if needed. May also follow up with Dr Rawls Gastro) if needed [phone]. Continue with previously prescribed medications as instructed (3 bottles returned to you) Referrals: Chele Moya MD [Staff Provider] - Johnathan Rawls MD [Staff Provider] -
[2018-06-02 16:58] VITALS: PULSE 86; O2SAT 99
== END 2018-05-31 18:27 | disposition home or self-care (01) ==
LOC: H.ER 21:40 → H.ERHOLD 05-31 04:25 → H.PEDS 05-31 06:04
PROVIDERS: ADMIT Specialist; ATTEND Specialist
DX: K80.20 Calculus of gallbladder without cholecystitis without obstruction (principal); K29.70 Gastritis, unspecified, without bleeding; Z53.29 Procedure and treatment not carried out because of patient's decision for other reasons
CPT/HCPCS: 74177; 76705; 80053; 81003; 81025; 83690; 85025; 85610; 85730; 86850; 86900; 87040; 93005; 96360; 96374; 99285; C9113; G0378; J2405; J2543; J7030; J7120; Q9967